=== PATIENT | male | born 1935 | race Caucasian/White ===

== ENCOUNTER 2021-01-31 09:12 | Day surgery (SDC) | payer MEDICARE, MEDICAID ==
[~2021-01-31] VITALS: Ht 182.9 cm; Wt 64.6 kg
[2021-01-31] VITALS (9 sets, daily range): BP systolic 98–126; BP diastolic 65–79
[2021-01-31] MEDS ORDERED: vancomycin/NS 1 GM ADD-VANTAGE 250 ML IV ONE (10:10)
[2021-01-31] MEDS ORDERED: cefazolin/dext.iso 2gm/100ml 100 ML IV ONE (10:10)
[2021-01-31] MEDS ORDERED: FLO0.4C (10:19)
[2021-01-31] MEDS ORDERED: NAPR-56 PO (10:19)
[2021-01-31] MEDS ORDERED: FLEC50TA PO (10:19)
[2021-01-31] MEDS ORDERED: MECL-159 PO (10:20)
[2021-01-31] MEDS ORDERED: OMEP40CA13 PO (10:20)
[2021-01-31] MEDS ORDERED: LIDOcaine 1% W/epiNEPHrine 1:100,000 20ml vial ONE (10:23)
[2021-01-31] MEDS ORDERED: midazolam 1 mg/ML 2ml injection ONE (10:23)
[2021-01-31] MEDS ORDERED: ceFAZolin 2gm in dextrose, iso 50 ML IV ONE (10:23)
[2021-01-31] MEDS ORDERED: ceFAZolin 1000mg inj ONE (10:23)
[2021-01-31] MEDS ORDERED: fentaNYL/PF 50MCG/1 ML 2ML syringe ONE (10:23)
[2021-01-31 10:56] LABS: BASOPHILS % (AUTO) 0.6 % (0-1); EOSINOPHILS % (AUTO) 0.8 % (0-6); HEMOGLOBIN 14.1 g/dl (14.0-17.9); LYMPHOCYTES # (AUTO) 0.4 X10'3 (1.1-4.8); LYMPHOCYTES % (AUTO) 12.3 % (21-51); MEAN CORPUSCULAR HEMOGLOBIN 33.2 PG (27.0-31.0); MEAN CORPUSCULAR HGB CONC 32.8 g/dL (33.0-36.5); MEAN CORPUSCULAR VOLUME 101.2 FL (78-98); MEAN PLATELET VOLUME 8.1 FL (7.4-10.4); MONOCYTES # (AUTO) 0.3 X10'3 (0-0.9); MONOCYTES % (AUTO) 8.6 % (2-12); NEUTROPHILS # (AUTO) 2.6 X10'3 (1.8-7.7); NEUTROPHILS % (AUTO) 77.7 % (42-75); PLATELET COUNT 122 X10'3 (140-440); RED BLOOD COUNT 4.25 X10'6 (4.70-6.10); RED CELL DISTRIBUTION WIDTH 13.3 % (11.5-14.5); WHITE BLOOD COUNT 3.3 X10'3 (4.5-11.0)
[2021-01-31] MEDS ORDERED: HYDROcodone/acetaminophen 5mg/325mg tablet PO PRN (12:05)
[2021-01-31] MEDS ORDERED: HYDROcodone/acetaminophen 10/325mg tab PO PRN (12:05)
[2021-01-31 12:54] LABS: ALBUMIN 4.2 G/DL (3.4-5.0); ANION GAP 11 (8-16); BLOOD UREA NITROGEN 17 MG/DL (7-18); BUN/CREATININE RATIO 18.5 (5.4-32.0); CALCIUM 9.4 MG/DL (8.5-10.1); CHLORIDE 107 MMOL/L (99-107); CREATININE 0.92 MG/DL (0.60-1.10); GLUCOSE 103 MG/DL (70-104); MAGNESIUM 2.1 MG/DL (1.5-2.4); SODIUM 144 MMOL/L (135-145); TOTAL CARBON DIOXIDE 25.9 MMOL/L (24-32); eGFR 79 ML/MIN
== END 2021-01-31 13:55 | disposition home or self-care (01) ==
LOC: SSTAY O 09:12
PROVIDERS: ATTEND Internal Medicine Cardiovascular Disease
DX: Z45.010 Encounter for checking and testing of cardiac pacemaker pulse generator [battery] (principal); I49.5 Sick sinus syndrome; K21.9 Gastro-esophageal reflux disease without esophagitis; Z98.890 Other specified postprocedural states; Z90.3 Acquired absence of stomach [part of]; Z79.899 Other long term (current) drug therapy; Z87.891 Personal history of nicotine dependence; Z91.09 Other allergy status, other than to drugs and biological substances
CPT/HCPCS: 33228; 36415; 80048; 83735; 85025; 85610; 93005; 99152; 99153; C1785; J0690; J2250; J3010; A4620

== ENCOUNTER 2022-05-29 08:06 | Day surgery (SDC) | payer MEDICARE, MEDICAID ==
[~2022-05-29] VITALS: Ht 188 cm; Wt 56.2 kg
[2022-05-29] VITALS (10 sets, daily range): BP systolic 103–131; BP diastolic 53–76
[~2022-05-29 08:06] MED LIST: FLEC50TA PO; FLO0.4C; MECL-159 PO; NAPR-56 PO; OMEP40CA21 PO
[2022-05-29] MEDS ORDERED: diphenhydrAMINE 25mg capsule PO PRN (08:40)
[2022-05-29] MEDS ORDERED: normal saline 1,000 ML IV SCH (08:40)
[2022-05-29] MEDS ORDERED: OMEP20CA16 PO (09:07)
[2022-05-29] MEDS ORDERED: ISOS30TA84 PO (09:07)
[2022-05-29] MEDS ORDERED: MELA1LIQ PO (09:07)
[2022-05-29] MEDS ORDERED: FINA5TAB11 PO (09:07)
[2022-05-29] MEDS ORDERED: OXYC-658 PO (09:07)
[2022-05-29] MEDS ORDERED: verapamil 2.5 mg/ml inj IV ONE (09:25)
[2022-05-29] MEDS ORDERED: midazolam 1 mg/ML 2ml injection ONE (09:25)
[2022-05-29] MEDS ORDERED: LIDOcaine 1%/PF 5ML 10 MG/ML VIAL ONE (09:25)
[2022-05-29] MEDS ORDERED: heparin 1,000unit/ml 10ml vial 10 ML ONE (09:25)
[2022-05-29] MEDS ORDERED: nitroGLYCERIN-Tridil 50MG/D5W 250 ML IV ONE (09:25)
[2022-05-29] MEDS ORDERED: fentaNYL/PF 50MCG/1 ML 2ML syringe ONE (09:25)
[2022-05-29] MEDS ORDERED: iohexol 350MG/ML 100ml bottle IV ONE (09:26)
[2022-05-29 09:32] LABS: BASOPHILS % (AUTO) 0.6 % (0-1); EOSINOPHILS % (AUTO) 0.4 % (0-6); HEMATOCRIT 27.1 % (42.0-52.0); HEMOGLOBIN 8.9 g/dl (14.0-17.9); LYMPHOCYTES # (AUTO) 0.5 X10'3 (1.1-4.8); LYMPHOCYTES % (AUTO) 15.6 % (21-51); MEAN CORPUSCULAR HEMOGLOBIN 26.4 PG (27.0-31.0); MEAN CORPUSCULAR HGB CONC 32.8 g/dL (33.0-36.5); MEAN CORPUSCULAR VOLUME 80.6 FL (78-98); MEAN PLATELET VOLUME 8.4 FL (7.4-10.4); MONOCYTES # (AUTO) 0.2 X10'3 (0-0.9); MONOCYTES % (AUTO) 6.7 % (2-12); NEUTROPHILS # (AUTO) 2.3 X10'3 (1.8-7.7); NEUTROPHILS % (AUTO) 76.7 % (42-75); PLATELET COUNT 145 X10'3 (140-440); RED BLOOD COUNT 3.36 X10'6 (4.70-6.10); RED CELL DISTRIBUTION WIDTH 16.3 % (11.5-14.5); WHITE BLOOD COUNT 3.1 X10'3 (4.5-11.0)
[2022-05-29 09:38] LABS: ALBUMIN 3.1 G/DL (3.4-5.0); ANION GAP 10 (8-16); CALCIUM 8.3 MG/DL (8.5-10.1); CHLORIDE 105 MMOL/L (99-107); GLUCOSE 94 MG/DL (70-104); MAGNESIUM 1.8 MG/DL (1.5-2.4); POTASSIUM 3.2 MMOL/L (3.5-5.1); SODIUM 142 MMOL/L (135-145); TOTAL CARBON DIOXIDE 26.9 MMOL/L (24-32)
[2022-05-29 09:54] LABS: BLOOD UREA NITROGEN 55 MG/DL (7-18); BUN/CREATININE RATIO 66.3 (5.4-32.0); CREATININE 0.83 MG/DL (0.60-1.10); eGFR 88 ML/MIN
[2022-05-29] MEDS ORDERED: normal saline 1000ml 1,000 ML IV SCH (13:45)
[2022-05-29] MEDS ORDERED: HYDROcodone/acetaminophen 10/325mg tab PO PRN (13:45)
[2022-05-29] MEDS ORDERED: ondansetron/PF 4mg/2ml inj IV PRN (13:45)
[2022-05-29] MEDS ORDERED: HYDROcodone/acetaminophen 5mg/325mg tablet PO PRN (13:45)
== END 2022-05-29 15:50 | disposition home or self-care (01) ==
LOC: SSTAY O 08:06
PROVIDERS: ATTEND Internal Medicine Cardiovascular Disease
DX: R07.89 Other chest pain (principal); I95.1 Orthostatic hypotension; K21.9 Gastro-esophageal reflux disease without esophagitis; I49.5 Sick sinus syndrome; Z79.899 Other long term (current) drug therapy; Z98.890 Other specified postprocedural states; Z95.0 Presence of cardiac pacemaker; Z90.3 Acquired absence of stomach [part of]
CPT/HCPCS: 36415; 80048; 82948; 83735; 85025; 85610; 93005; 93458; 99152; C1760; C1769; C1894; J1644; J2250; J3010; J3490; J7030; Q9967; 99153; A4620; A5120; A6258

== ENCOUNTER 2022-07-09 10:21 | Day surgery (SDC) | payer MEDICARE, MEDICAID ==
[~2022-07-09] VITALS: Ht 188 cm; Wt 68.2 kg
[~2022-07-09 10:21] MED LIST changes: +FINA5TAB11 PO; +ISOS30TA84 PO; +MELA1LIQ PO; +OMEP20CA16 PO; -OMEP40CA21 PO; +OXYC-658 PO
[2022-07-09 10:43] VITALS: BP 98/62
[2022-07-09] MEDS ORDERED: fentaNYL/PF 50MCG/1 ML 2ML syringe ONE (12:38)
[2022-07-09] MEDS ORDERED: LIDOcaine Viscous 15ml cup ONE (12:38)
[2022-07-09] MEDS ORDERED: MIDAZolam 1 MG/ML 5ML VIAL ONE (12:38)
[2022-07-09 14:34] VITALS: BP 121/75
[2022-07-09 14:40] VITALS: BP 135/78
[2022-07-09 14:51] VITALS: BP 146/62
[2022-07-09 15:01] VITALS: BP 120/72
[2022-07-09 15:06] VITALS: BP 119/71
== END 2022-07-09 15:15 | disposition home or self-care (01) ==
LOC: GI LAB 10:21
PROVIDERS: ATTEND Internal Medicine Gastroenterology
DX: D50.9 Iron deficiency anemia, unspecified (principal); Z98.0 Intestinal bypass and anastomosis status; Z90.3 Acquired absence of stomach [part of]
CPT/HCPCS: 43245; 99153; C1726; G0500; J2250; J3010; J7030; Z7512; 99152; A4620